=== PATIENT | male | born 2000 | race Caucasian/White ===

== ENCOUNTER 2021-01-24 14:43 | Emergency (ER) | payer OTHER ==
[~2021-01-24] VITALS: Ht 180.3 cm; Wt 120.2 kg
[2021-01-24 15:18] VITALS: BP_SYST 119
--- NOTE | 2021-01-24 15:20 | NUR ---
DOC AND ASKED TO WAIT IN THE WAITING ROOM
--- NOTE | 2021-01-24 15:40 | NUR ---
PT ARRIVES FOR BACK PAIN AFTER SUSTAINING AN INJURY AT WORK. PT HAS AN A [employer] COMP CASE AND IS HER FOR PAIN MANAGEMENT
--- NOTE | 2021-01-24 15:45 | NUR ---
ER at bedside examining patient.
[2021-01-24] MEDS ORDERED: IBUP-1969 PO (16:30)
--- NOTE | 2021-01-24 16:51 | NUR ---
Patient given written and verbal discharge instructions and verbalizes understanding. ER MD discussed with patient the results and treatment provided. Patient in stable condition. ID arm band removed. Rx of IBUPROFEN given. Patient educated on pain management and to follow up with PMD. Pain Scale 0/10. Opportunity for questions provided and answered. Medication side effect fact sheet provided.
[2021-01-24] MEDS ORDERED: MORPHINE 4 MG INJ. 4 MG/ML VIAL IM ONE (17:15)
[2021-01-24 17:40] VITALS: BP_SYST 119
== END 2021-01-24 16:51 | disposition home or self-care (01) ==
LOC: SED 14:43
DX: M54.5 Low back pain (principal); Z79.899 Other long term (current) drug therapy
CPT/HCPCS: 96372; 99283; J2270